=== PATIENT | male | born 1970 | race Two or more races ===

== ENCOUNTER 2024-07-10 09:46 | Outpatient (AMB) | payer BC, SELFPAY ==
[2024-07-10 10:06] VITALS: BP 145/83; PULSE 67; RESP 18; TEMP 36.8; O2SAT 96; BMI 30.7
--- NOTE | 2024-07-10 10:06 | PD.ORTHCLVIS ---
Vital signs 07/10/24 10:06 Height 1.73 m Height Method Stated Weight 91.739 kg Weight Measurement Method Standing Scale BMI 30.7 BP 145/83 H Blood Pressure Source Automatic Cuff Blood Pressure Location Right Upper Arm Position Sitting Respiration 18 Pulse 67 Pulse Source Monitor Temp 98.3 F Temp Source Temporal Artery Scan Pulse Oximetry (%) 96 Oxygen Delivery Method Room Air Med/Allergies Allergies & Medications Allergies No Known Allergies Allergy (Verified 07/10/24 10:07) Medication Reconciliation hydroxyzine HCl 25 mg tablet 25 mg PO Q6H PRN sleep/anxiety #20 tabs 08/17/17 [Rx Confirmed 07/10/24] meloxicam 7.5 mg tablet 7.5 mg PO QDAY #45 tabs 07/10/24 [Rx] Exam Exam Patient is in no acute distress and is cooperative with the examination today. Breathing is nonlabored. In no respiratory distress. Patient has no paraspinal tenderness. Spinal deformity cannot be appreciated. The gait of the patient is nonantalgic Bilateral extremities were evaluated and demonstrates sensation intact to light touch. Palpable pedal pulses are present. No significant edema is present. Bilateral knees were examined and the patient has full strength and range of motion.. The right hip was examined. Patient was able to flex to 90 degrees, adduct to 30 degrees, abduct to 40 degrees, internally rotate to 10 degrees, and externally rotate to 20 degrees. Patient has a negative logroll. Stinchfield is negative. The patient is nontender diffusely to touch. The left hip was examined. Patient was able to flex to 90 degrees, adduct to 30 degrees, abduct to 40 degrees, internally rotate to 0 degrees, and externally rotate to 10 degrees. Patient has a positive logroll and Stinchfield I have no xrays to view Assessment and Plan Problem List (1) Arthritis of left hip: Status: Acute Plan: Patient is a pleasant 54-year-old male with left hip pain and left hip arthritis. I would like to get weightbearing x-rays or any x-rays to see what the hip looks like. We will start him on meloxicam. 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 ([id number]) MA Intake Visit Data Collection New Patient or Established: Established Patient (seen at [facility] [place] 3 years) Reason for Visit:: LT HIP PAIN Seen by Clinical Staff ONLY (RN/MA): No Cut In Worker Required: No PCP or OBGYN visit in last 3 months: Yes Hx Now: No Do You Feel Safe at Home: Yes Authorities Contacted: N/A Questionairres Past Medical History Past Medical History Have you ever been diagnosed with any of the following: Cardiology Problems Congestive Heart Failure: No Respiratory Problems Chronic Obstructive Pulmonary Disease (COPD): No Genital/Urinary Problems Renal Disease: No Endocrine Problems Diabetes Mellitus Type 1: No Diabetes Mellitus Type 2: No Subjective Visit Visit for: new patient and hip (LT HIP) Immunization / Flu Flu Vaccine in the Last 12 Months: No Flu Vaccine Exclusion Criteria: Refused by Patient History of Present Illness Chief complaint: Left hip pain Naren is a pleasant 54-year-old male with left hip pain. This has been ongoing for 3 years. He has a very active job and reports that he has difficulty walking or performing his activities. He has difficulty putting on socks and shoes Personal History Red flag PMH: none Pain Pain level (0-10): 6 Pain duration: 2-3 YEARS Pain location: groin Pain quality: sharp, dull, aching, burning, shocking, electric and tingling Pain timing: night, increases with activity and stairs Associated signs & symptoms: stiffness Ambulatory data Ambulatory device: none Walking distance (minutes): 1 Treatments Number of previous injections: 0 Number of Physical Therapy sessions: 0 Improvement with NSAIDS: n/a Review of Systems Review of Systems: All systems negative unless otherwise noted in HPI.
--- NOTE | 2024-07-10 10:31 | XR_ITS ---
Examination: Bilateral hips, AP pelvis, 5 views Technique: AP, lateral views both hips, AP pelvis, 5 views Exam date and time: July 10, 2024 1047 hours INDICATIONS: Bilateral hip pain one year. FINDINGS: Moderate to advanced right hip osteoarthritis Advanced left hip osteoarthritis No hip or pelvic fracture IMPRESSION: Moderate to advanced right hip osteoarthritis Advanced left hip osteoarthritis, severe joint space narrowing
== END 2024-07-10 10:36 | disposition home or self-care (01) ==
LOC: HODSRG 09:46
PROVIDERS: PCP Family Medicine; Referring Provider Family Medicine; Supervising Provider Orthopaedic Surgery Adult Reconstructive Orthopaedic Surgery; Visit Provider Orthopaedic Surgery Adult Reconstructive Orthopaedic Surgery
DX: M16.0 Bilateral primary osteoarthritis of hip (principal); M25.552 Pain in left hip
CPT/HCPCS: 73522; 99203; G0463

== ENCOUNTER 2024-07-26 13:17 | Outpatient (AMB) | payer BC, SELFPAY ==
[2024-07-26 13:52] VITALS: BP 148/81; PULSE 69; RESP 18; TEMP 36.1; O2SAT 95; BMI 31.2
--- NOTE | 2024-07-26 13:52 | ORTHONT_ITS ---
Vital signs 07/26/24 13:52 Height 1.73 m Height Method Stated Weight 93.582 kg Weight Measurement Method Standing Scale BMI 31.2 BP 148/81 H Blood Pressure Source Automatic Cuff Blood Pressure Location Right Upper Arm Position Sitting Respiration 18 Pulse 69 Pulse Source Monitor Temp 96.9 F Temp Source Temporal Artery Scan Pulse Oximetry (%) 95 Oxygen Delivery Method Room Air Med/Allergies Allergies & Medications Allergies No Known Allergies Allergy (Verified 07/26/24 13:53) Medication Reconciliation hydroxyzine HCl 25 mg tablet 25 mg PO Q6H PRN sleep/anxiety #20 tabs 08/17/17 [Rx Confirmed 07/26/24] meloxicam 7.5 mg tablet 7.5 mg PO QDAY #45 tabs 07/10/24 [Rx Confirmed 07/26/24] Exam Exam Patient is in no acute distress and is cooperative with the examination today. Breathing is nonlabored. In no respiratory distress. Patient has no paraspinal tenderness. Spinal deformity cannot be appreciated. The gait of the patient is nonantalgic Bilateral extremities were evaluated and demonstrates sensation intact to light touch. Palpable pedal pulses are present. No significant edema is present. Bilateral knees were examined and the patient has full strength and range of motion.. The right hip was examined. Patient was able to flex to 90 degrees, adduct to 30 degrees, abduct to 40 degrees, internally rotate to 10 degrees, and externally rotate to 20 degrees. Patient has a negative logroll. Stinchfield is negative. The patient is nontender diffusely to touch. The left hip was examined. Patient was able to flex to 90 degrees, adduct to 30 degrees, abduct to 40 degrees, internally rotate to 0 degrees, and externally rotate to 10 degrees. Patient has a positive logroll and Stinchfield X-rays of the left hip were reviewed. This is dated 07/10/2024. This demonstrates severe arthritis of the left hip with complete joint space narrowing and osteophytes Assessment and Plan Problem List (1) Arthritis of left hip: Status: Acute Plan: Patient is a pleasant 54-year-old male with left hip pain and left hip arthritis. He has significant left hip arthritis we discussed different treatment options. He would like to continue with conservative treatment this time. We will start with a cortisone injection of the left hip and he can continues therapy and meloxicam We will see him back in approximately 2 months Office Procedures GNS Level of Care Nursing/Assessment Patient Status: Established Patient Nursing Assessment/Reassesment: Medication Reconciliation, Update PMH in EMR and Vital Signs Coordination of Care: Complex Care and Chronic Disease 1-5, Education Complex Pt/Fam, Consent,records obtained, informed consent, Results/Orders obtained and Staff clarify orders Established Patient Charge Established Patient Point Assignment: 95 Established Patient Point Charge: EP Level 3 (80-115) MA Intake Visit Data Collection New Patient or Established: Established Patient (seen at [facility] within 3 years) Reason for Visit:: f/u xrays Seen by Clinical Staff ONLY (RN/MA): No Verbal consent obtained for Telemed visit?: No Physician General Practice Required: No PCP or OBGYN visit in last 3 months: Yes Hx Now: Yes Do You Feel Safe at Home: Yes Authorities Contacted: N/A Questionairres Past Medical History Past Medical History Have you ever been diagnosed with any of the following: Cardiology Problems Congestive Heart Failure: No Respiratory Problems Chronic Obstructive Pulmonary Disease (COPD): No Genital/Urinary Problems Renal Disease: No Endocrine Problems Diabetes Mellitus Type 1: No Diabetes Mellitus Type 2: No Subjective Visit Visit for: follow up visit, hip and x-rays Immunization / Flu Flu Vaccine in the Last 12 Months: No Flu Vaccine Exclusion Criteria: No Exclusion Criteria History of Present Illness Chief complaint: F/U HIP XRAYS Naren is a pleasant 54-year-old male with left hip pain. This has been ongoing for 3 years. He has a very active job and reports that he has difficulty walking or performing his activities. He has difficulty putting on socks and shoes. He is taking meloxicam and just started pt. Personal History Red flag PMH: BMI BMI Counceling provided: Yes Pain Pain level (0-10): 5 Pain duration: COMES AND GOES Pain location: groin Pain quality: dull and aching Pain timing: increases with activity Associated signs & symptoms: stiffness Ambulatory data Ambulatory device: none Walking distance (minutes): 1 Treatments Number of previous injections: 0 Improvement with previous injections: No Number of Physical Therapy sessions: 0 Improvement with PT: No Improvement with NSAIDS: no Review of Systems Review of Systems: All systems negative unless otherwise noted in HPI.
== END 2024-07-26 14:17 | disposition home or self-care (01) ==
LOC: HODSRG 13:17
PROVIDERS: PCP Family Medicine; Referring Provider Family Medicine; Supervising Provider Orthopaedic Surgery Adult Reconstructive Orthopaedic Surgery; Visit Provider Orthopaedic Surgery Adult Reconstructive Orthopaedic Surgery
DX: M16.12 Unilateral primary osteoarthritis, left hip (principal); M25.552 Pain in left hip
CPT/HCPCS: 99213; G0463

== ENCOUNTER → 2024-08-15 | Outpatient (CLI) | payer BC, SELFPAY ==
--- NOTE | 2024-08-15 13:00 | XR_ITS ---
Examination: Steroid injection left hip joint with imaging guidance Fluoroscopy AP left hip single view. Exam date and time: August 15, 2024 1240 hours INDICATIONS: Diagnosis unilateral primary osteoarthritis left hip left hip pain months Informed consent provided. Technique: A timeout was completed verifying correct patient, procedure, site, positioning. The patient was placed in supine position appropriate for the steroid injection The patient's site was prepped and draped in sterile fashion 5 cc 1% lidocaine administered locally for anesthesia. Sterile drape applied, maximum barrier sterile technique. Utilizing fluoroscopic guidance, 23-gauge needle placed in the left hip joint 1 cc Kenalog 40 in 5 cc 0.25% Marcaine introduced into the left hip joint The patient was in satisfactory and stable condition on completion of the procedure Attending radiologist was present for the entire procedure Estimated blood loss 0 cc. Impression: Successful steroid injection left hip joint with imaging guidance Fluoroscopy 0.1 minute radiation dose 1.37 milligray 1 spot fluoroscopic film .
[2024-08-15] MEDS: BUPIVACAINE MPF 0.5% 30 ML VIAL EPID (13:30)
[2024-08-15] MEDS: TRIAMCINOLONE ACET INJ 40 MG/ML VIAL IARTICULAR (13:31)
== END | disposition home or self-care (01) ==
LOC: SIRX 12:39
PROVIDERS: Referring Provider Orthopaedic Surgery Adult Reconstructive Orthopaedic Surgery; Visit Provider Orthopaedic Surgery Adult Reconstructive Orthopaedic Surgery
DX: M16.12 Unilateral primary osteoarthritis, left hip (principal)
CPT/HCPCS: 20610; 77002; J3301; J3490